=== PATIENT | female | born 1990 | race Caucasian/White ===

== ENCOUNTER → 2017-03-07 | Outpatient (CLI) | payer OTHER ==
--- NOTE | 2017-03-07 18:00 | Diagnostic Imaging Report ---
INDICATION: Right lower quadrant pain. IUD placement with spotting in early February. Patient does not have monthly cycles. COMPARISON STUDIES: None. FINDINGS: Transvaginal imaging of the pelvis demonstrates an IUD in good position. The endometrium is normal thickness, measuring 5 mm. The uterus appears normal. No free fluid is present. The uterus measures 7.5 x 4.7 x 3.5 cm. Flow is seen to both ovaries. A few tiny follicles are present. No loculated fluid collections are seen. The appendix is not identified. The right ovary measures 2.8 x 2.8 x 2.5 cm and the left measures 2.6 x 2.1 x 2.0 cm. IMPRESSION: An IUD is in place with endometrium appearing normal at 5 mm. The appendix was not identified. Dictated by: Dictated on workstation # [id number]
== END ==
LOC: RAD 17:03
PROVIDERS: ATTEND Nurse Practitioner Family
DX: R10.31 Right lower quadrant pain (principal)
CPT/HCPCS: 76830; 76856